=== PATIENT | female | born 2000 | race Caucasian/White ===

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

== ENCOUNTER 2021-03-12 00:38 | Emergency (ER) | payer BC, SELFPAY ==
[2021-03-12 00:39] VITALS: BP 149/90; PULSE 103; RESP 16; TEMP 36.7; O2SAT 100; BMI 30.6
--- NOTE | 2021-03-12 00:52 | HMH.EDGENADL ---
ED Disposition Clinical Impression: Tonsillitis Clinical Impression: (Ruled Out): Acute tonsillitis Disposition: Home, Self-Care Condition on Discharge: Fair Additional Instructions: Follow-up with your primary care physician in 3 days. If your symptoms worsen, you develop fever, begin having difficulty swallowing or breathing please return to the emergency department or follow-up with your primary care physician sooner. Take Motrin and ibuprofen for pain. Referrals: Lior Wills MD [Primary Care Provider] - - Critical Care Critical Care Time: No Attestation: On , the high probability of a clinically significant, sudden or life threatening deterioration of the following system(s) required my full and direct attention, intervention and personal management. The time I documented below is in addition to time spent performing reported procedures but includes the following listed in this critical care notation. Medical Decision Making - Medical Records Medical records reviewed: Yes: I reviewed the patient's medical records. - Russ Inquiry Pt receiving controlled substance: No Vital Signs: 03/12/21 00:39 Temperature 98.1 F Temperature Source Oral Pulse Rate [Right Radial] 103 H Respiratory Rate 16 Blood Pressure [Right Arm] 149/90 H Blood Pressure Mean [Right Arm] 109 02 Sat by Pulse Oximetry 100 Oxygen Delivery Method Room Air Orders (Tests/Meds): ED MEDICATIONS Discontinued Medications Generic Name Dose Route Start Last Admin Trade Name Freq PRN Reason Stop Dose Admin Dexamethasone 10 mg 03/12/21 00:46 03/12/21 00:51 Dexamethasone 1mg/1ml Intensol 10ml Udc (Er) PO 03/12/21 00:47 10 mg ONCE ONE Administration Medical Decision Narrative: Patient is an 19-year-old female presents emergency department with chief complaint of sore throat. Differential diagnosis includes strep pharyngitis, tonsillitis, URI, COVID-19 among others. Given this we will swab her for COVID-19. Physical exam as well as Centor criteria not significantly consistent with strep pharyngitis. Also patient for COVID-19 and treat symptomatically with Decadron to treat swelling. Given the 2 days of swelling and pain likely viral presentation, will not prescribe antibiotics at this time but will recommend close follow-up with primary care physician to reevaluate. General Adult HPI - General Chief complaint: Upper Respiratory Infection Stated complaint: Sore throat Time Seen by Provider: 03/12/21 00:45 Mode of Arrival: Ambulatory Source of Information: Patient Limitations: No Limitations Description of Symptoms (Recalled from ER Triage Doc. by RN): Pt reports sore throat for 2 days. She deneis fever, chills, N/V/D, cough, PARSON. Pt reports frequent bouts of strep in the past. - History of Present Illness HPI narrative: 20-year-old female presented to the emergency room with a chief complaint of sore throat. Patient states has been present for about 2 days and got significantly worse this evening. She states that she was supposed to get her tonsils taken out but has not yet done. This happened prior, and has improved significantly with steroids. She denies any difficulty with swallowing, shortness of air, fevers, chills, headache, nausea or vomiting. - Related Data Home Medications Medication Instructions Recorded Confirmed norgestimate 0.25 mg-ethinyl 1 tab PO DAILY #84 tab 11/05/18 11/11/20 estradiol 35 mcg tablet metformin 500 mg tablet,extended 1 tab PO DAILY 07/02/19 11/11/20 release 24 hr Cetirizine HCl 10 mg PO DAILY 11/11/20 11/11/20 Fluticasone Propionate 1 spray IH BID 11/11/20 11/11/20 Previous Rx's Medication Instructions Recorded Albuterol Sulfate [Albuterol HFA 1 - 2 puffs IH Q4-6H PRN #1 inh 07/14/18 Inhaler] cephALEXin [cephALEXin 500mg 500 mg PO TID #30 cap 11/12/20 capsule*] Allergies Allergy/AdvReac Type Severity Reaction Status Date / Time No Known A
[2021-03-12 01:10] VITALS: BP 139/87; PULSE 92; RESP 20; TEMP 36.7; O2SAT 99
[2021-03-12 01:24] LABS: Coronavirus 19, PCR Not Detected (NotDetected); Influenza A, PCR Not Detected (NotDetected); Influenza B, PCR Not Detected (NotDetected)
== END 2021-03-12 01:17 | disposition home or self-care (01) ==
PROVIDERS: Emergency Provider Emergency Medicine; PCP Family Medicine
DX: J03.90 Acute tonsillitis, unspecified (principal); Z20.822 Contact with and (suspected) exposure to COVID-19
CPT/HCPCS: 99281; C9803; U0003; U0005

== ENCOUNTER 2021-09-13 09:44 | Emergency (ER) | payer BC, SELFPAY ==
[2021-09-13 10:01] VITALS: BP 158/95; PULSE 73; RESP 18; TEMP 36.9; O2SAT 100; BMI 34.2
[2021-09-13 11:14] VITALS: BP 133/85; PULSE 79; RESP 18; TEMP 36.6; O2SAT 98; BMI 34.2
--- NOTE | 2021-09-13 11:18 | HMH.EDUTC ---
[facility] [place] Clinical Impression: Bronchitis Sinusitis Qualifiers: Sinusitis location: unspecified location Chronicity: acute Recurrence: non-recurrent Qualified Code(s): J01.90 - Acute sinusitis, unspecified Disposition: Home, Self-Care Condition on Discharge: Good Instructions: DI for Sinusitis, DI for Acute Bronchitis Additional Instructions: Drink plenty of fluids. Take tylenol or ibuprofen for pain or fever. Take the medications as directed. Follow up with your regular doctor. GO TO THE ER FOR ANY WORSENING SYMPTOMS Prescriptions: Brompheniramine/Pseudoephed/Dm [Bromfed Dm Cough Syrup] 5 ml PO Q6HP PRN #240 ml PRN Reason: Cough Transmission Status: Received by [id number] Amoxicillin/Potassium Clav [Amox-Clav 875-125 mg Tablet] 1 tab PO BID #20 tab Transmission Status: Received by [id number] methylPREDNISolone [Medrol] 4 mg PO DIRECTED 6 Days #21 packet Transmission Status: Received by [id number] Referrals: Lior Wills MD [Primary Care Provider] - Forms: Work/School Release Time of Disposition: 12:02 Medical Decision Making - Medical Records Medical records reviewed: No: I reviewed the patient's medical records. - Russ Inquiry Pt receiving controlled substance: No Vital Signs: 09/13/21 10:01 09/13/21 11:14 09/13/21 12:13 Temperature 98.4 F 97.8 F 97.8 F Temperature Source Oral Oral Oral Pulse Rate 74 Pulse Rate [Left Radial] 73 79 Respiratory Rate 18 18 16 Blood Pressure 128/80 Blood Pressure [Right Arm] 158/95 H 133/85 Blood Pressure Mean [Right Arm] 116 101 Blood Pressure Source [Right Arm] Automatic Cuff Blood Pressure Position [Right Arm] Sitting 02 Sat by Pulse Oximetry 100 98 Oxygen Delivery Method Room Air Room Air - Lab Data Lab Results 09/13/21 11:44: Influenza Type A Ag Negative, Influenza Type B Ag Negative 09/13/21 11:44: Strep Scn Rapid Clinic Negative Orders (Tests/Meds): ORDERS Category Date Time Status Strep Screen Confirmation Stat Micro 09/13/21 11:44 [place] [facility] [place] - General Stated complaint: loss voice, sore throat, congestion, cough Time Seen by Provider: 03/21/22 11:18 Mode of Arrival: Ambulatory Source of Information: Patient Limitations: No Limitations Description of Symptoms (Recalled from Triage Doc. by RN): [facility] and congestion x3 days HEENT Symptoms (Recalled from RN notes): No Resp Symptoms (Recalled from RN notes): Yes Skin Symptoms (Recalled from RN notes): No MS Symptoms (Recalled from RN notes): No Functional Status (Recalled from RN notes): na - History of Present Illness Provider Complaint: She states that for the past 2 days she has had sinus congestion, productive cough with yellowish sputum and sore thraot. She has had a negative covid test yesterday. - Related Data Home Medications Medication Instructions Recorded Confirmed norgestimate 0.25 mg-ethinyl 1 tab PO DAILY #84 tab 11/05/18 11/11/20 estradiol 35 mcg tablet metformin 500 mg tablet,extended 1 tab PO DAILY 07/02/19 11/11/20 release 24 hr Cetirizine HCl 10 mg PO DAILY 11/11/20 11/11/20 Fluticasone Propionate 1 spray IH BID 11/11/20 11/11/20 Previous Rx's Medication Instructions Recorded Albuterol Sulfate [Albuterol HFA 1 - 2 puffs IH Q4-6H PRN #1 inh 07/14/18 Inhaler] cephALEXin [cephALEXin 500mg 500 mg PO TID #30 cap 11/12/20 capsule*] Amoxicillin/Potassium Clav 1 tab PO BID #20 tab 09/13/21 [Amox-Clav 875-125 mg Tablet] Brompheniramine/Pseudoephed/Dm 5 ml PO Q6HP PRN #240 ml 09/13/21 [Bromfed Dm Cough Syrup] methylPREDNISolone [Medrol] 4 mg PO DIRECTED 6 Days #21 09/13/21 packet Allergies Allergy/AdvReac Type Severity Reaction Status Date / Time No Known Allergies Allergy Verified 07/02/19 11:25 - Worker's Comp Is this a Worker's Comp case?: No [facility] History - Hepatitis A Screen Drug use history?: No High r
[2021-09-13 11:52] LABS: UTC Strep Screen (Rapid) Negative (Negative)
[2021-09-13 11:53] LABS: UTC Influenza A Antigen Negative (Negative); UTC Influenza B Antigen Negative (Negative)
[2021-09-13 12:13] VITALS: BP 128/80; PULSE 74; RESP 16; TEMP 36.6; O2SAT 99
== END 2021-09-13 12:14 | disposition home or self-care (01) ==
PROVIDERS: Emergency Provider Nurse Practitioner Family; PCP Family Medicine
DX: J20.9 Acute bronchitis, unspecified (principal); J01.90 Acute sinusitis, unspecified
CPT/HCPCS: 87804; 87880; 99213; G0463

== ENCOUNTER 2022-05-23 08:04 | Emergency (ER) | payer BC, SELFPAY ==
--- NOTE | 2022-05-23 08:26 | EXP.UTC ---
Discharge Plan Disposition Patient Disposition: Home, Self-Care Condition: Good Prescriptions Prescriptions: New oseltamivir [Tamiflu] 75 mg capsule 75 mg PO BID Qty: 10 0RF methylprednisolone 4 mg Tablets,Dose Pack 4 mg PO DIRECTED Qty: 21 0RF obfqdlrtjskvntz-eesxhlsgs-EH [Bromfed DM] 2-30-10 mg/5 mL Syrup 5 ml PO Q6H PRN (Reason: Cough) Qty: 240 0RF No Action norgestimate-ethinyl estradiol 0.25-35 mg-mcg tablet 1 tab PO DAILY Qty: 84 metformin 500 mg tablet extended release 24 hr 1 tab PO DAILY Label Comments: TAKE 1 TABLET BY MOUTH TWICE DAILY WITH FOOD albuterol sulfate 18 GM HFA aerosol inhaler 1 - 2 puffs IH Q4-6H PRN (Reason: Shortness Of Breath Or Wheezing) Qty: 1 0RF methylprednisolone 4 MG tablets,dose pack 4 mg PO DIRECTED 6 Days Qty: 21 0RF slgzrhrconwrjkw-lwbgyntqe-QO 118 ML syrup 5 ml PO Q6HP PRN (Reason: Cough) Qty: 240 0RF amoxicillin-pot clavulanate 1 EACH tablet 1 tab PO BID Qty: 20 0RF cetirizine 10 MG tablet 10 mg PO DAILY fluticasone propionate 16 GM spray,suspension 1 spray IH BID Label Comments: USE 1 SPRAY(S) IN EACH NOSTRIL ONCE DAILY cephalexin 500 MG capsule 500 mg PO TID Qty: 30 0RF Referrals Follow up/Referrals: Lior Wills MD [Primary Care Provider] - See instructions Activity Restrictions/Add. Instructions Additional Instructions/Restrictions: Drink plenty of fluids. Take tylenol or ibuprofen for pain or fever. Take the medications as directed. Follow up with your regular doctor. GO TO THE ER FOR ANY WORSENING SYMPTOMS Throw your tooth brush away and get a new one. Quarantine until you know the results of your covid-19 test. Notify your school or workplace of your results and follow their instructions regarding return to work/school. Don't start the oral steroids until tomorrow, since you had the shot here today. The cough medication (promethazine dm) will make you drowsy, so don't drive or operate heavy machinery after taking it. The pyridium will make your urine turn orange, this is an expected side effect. It will stain your clothes if it comes into contact with them. We will culture the urine. That will tell what bacteria is causing your infection and which antibiotics will treat it best. Sometimes the first antibiotic we prescribe turns out to not work against different bacteria. So, make sure you follow up within 3 days if you are not getting better. Clinical Impressions Clinical Impression: Pharyngitis, Acute viral syndrome, Influenza Instructions Patient Instructions: Oseltamivir, DI for Influenza -- Adult Discharge ED Provider: Raymundo Rodas [facility] General Stated complaint: possible flu/sister postive Time Seen by Provider: 05/23/22 08:26 History of Present Illness Provider Complaint: She states that for the past 2 days she has had fever, chills, body aches, and a sore throat. Related Data Home Medications Medication Instructions Recorded Confirmed norgestimate 0.25 mg-ethinyl 1 tab PO DAILY BC #84 tabs 11/05/18 11/11/20 estradiol 35 mcg tablet metformin 500 mg tablet,extended 1 tab PO DAILY PCOS 07/02/19 11/11/20 release 24 hr cetirizine 10 mg tablet 10 mg PO DAILY ALLERGIES 11/11/20 11/11/20 fluticasone propionate 50 1 spray IH BID ALLERGIES 11/11/20 11/11/20 mcg/actuation nasal spray,suspension Previous Rx's Medication Instructions Recorded albuterol sulfate 90 mcg/actuation 1 - 2 puffs IH Q4-6H PRN Shortness 07/14/18 aerosol inhaler Of Breath Or Wheezing #1 inh cephalexin 500 mg capsule 500 mg PO TID #30 caps 11/12/20 amoxicillin 875 mg-potassium 1 tab PO BID #20 tabs 09/13/21 clavulanate 125 mg tablet ofiwhshysjxnvdz-cqzzybhpspyvjec-ZR 5 ml PO Q6HP PRN Cough #240 mL 09/13/21 2 mg-30 mg-10 mg/5 mL oral syrup methylprednisolone 4 mg tablets in 4 mg PO DIRECTED 6 days #21 09/13/21 a dose pack packets br
[2022-05-23 08:36] LABS: UTC Influenza A Antigen Negative (Negative); UTC Influenza B Antigen Negative (Negative); UTC Strep Screen (Rapid) Negative (Negative)
[2022-05-23 08:46] VITALS: BP 178/104; PULSE 102; RESP 15; TEMP 37.3; O2SAT 99; BMI 36.6
[2022-05-23 08:53] VITALS: BP 178/104; PULSE 120; RESP 15; TEMP 37.3
== END 2022-05-23 09:02 | disposition home or self-care (01) ==
PROVIDERS: Emergency Provider Nurse Practitioner Family; PCP Family Medicine
DX: J11.1 Influenza due to unidentified influenza virus with other respiratory manifestations (principal); B34.9 Viral infection, unspecified
CPT/HCPCS: 87804; 87880; 99212; G0463

== ENCOUNTER 2022-05-28 08:00 | Emergency (ER) | payer BC, SELFPAY ==
--- NOTE | 2022-05-28 08:13 | EXP.UTC ---
Discharge Plan Disposition Patient Disposition: Home, Self-Care Condition: Good Prescriptions Prescriptions: New azithromycin [Zithromax] 250 mg tablet 250 mg PO UD DOSE PK Qty: 6 0RF Rx Instructions: Take two (2) tablets today, then one (1) tablet days #2 thru #5 methylprednisolone 4 mg Tablets,Dose Pack 4 mg PO DIRECTED Qty: 21 0RF guaifenesin [Mucinex] 600 mg tablet extended release 12hr 600 - 1,200 mg PO BIDP PRN (Reason: Congestion) Qty: 30 0RF No Action norgestimate-ethinyl estradiol 0.25-35 mg-mcg tablet 1 tab PO DAILY Qty: 84 metformin 500 mg tablet extended release 24 hr 1 tab PO DAILY Label Comments: TAKE 1 TABLET BY MOUTH TWICE DAILY WITH FOOD albuterol sulfate 18 GM HFA aerosol inhaler 1 - 2 puffs IH Q4-6H PRN (Reason: Shortness Of Breath Or Wheezing) Qty: 1 0RF methylprednisolone 4 MG tablets,dose pack 4 mg PO DIRECTED 6 Days Qty: 21 0RF jtcsrwltnccvlmm-behuplscg-YE 118 ML syrup 5 ml PO Q6HP PRN (Reason: Cough) Qty: 240 0RF amoxicillin-pot clavulanate 1 EACH tablet 1 tab PO BID Qty: 20 0RF oseltamivir [Tamiflu] 75 mg capsule 75 mg PO BID Qty: 10 0RF methylprednisolone 4 mg Tablets,Dose Pack 4 mg PO DIRECTED Qty: 21 0RF ahylyogwrlwqgqy-hxbmvocym-BX [Bromfed DM] 2-30-10 mg/5 mL Syrup 5 ml PO Q6H PRN (Reason: Cough) Qty: 240 0RF cetirizine 10 MG tablet 10 mg PO DAILY fluticasone propionate 16 GM spray,suspension 1 spray IH BID Label Comments: USE 1 SPRAY(S) IN EACH NOSTRIL ONCE DAILY cephalexin 500 MG capsule 500 mg PO TID Qty: 30 0RF Referrals Follow up/Referrals: Lior Wills MD [Primary Care Provider] - See instructions Activity Restrictions/Add. Instructions Additional Instructions/Restrictions: Drink plenty of fluids. Take tylenol or ibuprofen for pain or fever. Take the medications as directed. Follow up with your regular doctor. GO TO THE ER FOR ANY WORSENING SYMPTOMS Don't start the oral steroids until tomorrow, since you had the shot here today. Clinical Impressions Clinical Impression: Bronchitis Instructions Patient Instructions: DI for Acute Bronchitis Discharge ED Provider: Raymundo Rodas [facility] General Stated complaint: SOA, Congestion Time Seen by Provider: 05/28/22 08:13 History of Present Illness Provider Complaint: She states that for the past 5 days she has had chest congestion and productive cough with greenish sputum. Related Data Home Medications Medication Instructions Recorded Confirmed norgestimate 0.25 mg-ethinyl 1 tab PO DAILY BC #84 tabs 11/05/18 11/11/20 estradiol 35 mcg tablet metformin 500 mg tablet,extended 1 tab PO DAILY PCOS 07/02/19 11/11/20 release 24 hr cetirizine 10 mg tablet 10 mg PO DAILY ALLERGIES 11/11/20 11/11/20 fluticasone propionate 50 1 spray IH BID ALLERGIES 11/11/20 11/11/20 mcg/actuation nasal spray,suspension Previous Rx's Medication Instructions Recorded albuterol sulfate 90 mcg/actuation 1 - 2 puffs IH Q4-6H PRN Shortness 07/14/18 aerosol inhaler Of Breath Or Wheezing #1 inh cephalexin 500 mg capsule 500 mg PO TID #30 caps 11/12/20 amoxicillin 875 mg-potassium 1 tab PO BID #20 tabs 09/13/21 clavulanate 125 mg tablet plesysicjwezbyw-ifcclddjzgkavek-FW 5 ml PO Q6HP PRN Cough #240 mL 09/13/21 2 mg-30 mg-10 mg/5 mL oral syrup methylprednisolone 4 mg tablets in 4 mg PO DIRECTED 6 days #21 09/13/21 a dose pack packets chmvaqknlihyghn-jfuszfjslrbgdry-RI 5 ml PO Q6H PRN Cough #240 mL 05/23/22 2 mg-30 mg-10 mg/5 mL oral syrup (Bromfed DM) methylprednisolone 4 mg tablets in 4 mg PO DIRECTED #21 tabs 05/23/22 a dose pack oseltamivir 75 mg capsule (Tamiflu) 75 mg PO BID #10 caps 05/23/22 azithromycin 250 mg tablet 250 mg PO UD DOSE PK #6 tabs 05/28/22 (Zithromax) guaifenesin 600 mg tablet, 600 - 1,200 mg PO BIDP PRN 05/28/22 extended release 12 hr (Mucinex) Congestion #30
--- NOTE | 2022-05-28 08:14 | XR_ITS ---
PROCEDURE INFORMATION: Exam: XR Chest Exam date and time: 05/28/2022 8:15 AM Age: 22 years old Clinical indication: Cough TECHNIQUE: Imaging protocol: Radiologic exam of the chest. Views: 2 views. COMPARISON: No relevant prior studies available. FINDINGS: Lungs: Small, irregular opacity in the retrocardiac left lower lobe, concerning for pneumonia. Pleural spaces: Unremarkable. No pleural effusion. No pneumothorax. Heart/Mediastinum: Unremarkable. No cardiomegaly. Bones/joints: Unremarkable. IMPRESSION: Small, irregular opacity in the retrocardiac left lower lobe, concerning for pneumonia. No pleural effusion.
[2022-05-28 08:16] VITALS: BP 137/92; PULSE 105; RESP 16; TEMP 36.8; O2SAT 98; BMI 36.6
[2022-05-28 08:33] LABS: UTC Pregnancy Test, Urine Negative (Negative)
[2022-05-28 09:10] VITALS: BP 137/92; PULSE 105; RESP 16; TEMP 36.8
== END 2022-05-28 09:11 | disposition home or self-care (01) ==
PROVIDERS: Emergency Provider Nurse Practitioner Family; PCP Family Medicine
DX: R06.02 Shortness of breath (principal); R05.9 Cough, unspecified; R09.81 Nasal congestion; Z79.51 Long term (current) use of inhaled steroids; Z79.52 Long term (current) use of systemic steroids; Z79.84 Long term (current) use of oral hypoglycemic drugs; Z79.899 Other long term (current) drug therapy
CPT/HCPCS: 71046; 81025; 96372; 99213; G0463

== ENCOUNTER 2023-01-07 03:49 | Emergency (ER) | payer BC, SELFPAY ==
[2023-01-07 04:00] VITALS: BP 160/99; PULSE 119; RESP 20; TEMP 36.8; O2SAT 99; BMI 38.6
--- NOTE | 2023-01-07 04:00 | HMH.EDABDPAI ---
Discharge Plan Disposition Patient Disposition: Home, Self-Care Condition: Good Prescriptions Prescriptions: New ondansetron 4 mg tablet,disintegrating 4 mg PO Q6H PRN (Reason: nausea and vomiting) Qty: 10 0RF dicyclomine 20 mg tablet 20 mg PO QID PRN (Reason: abdominal pain) Qty: 20 0RF No Action norgestimate-ethinyl estradiol 0.25-35 mg-mcg tablet 1 tab PO DAILY Qty: 84 metformin 500 mg tablet extended release 24 hr 1 tab PO DAILY Patient Comments: TAKE 1 TABLET BY MOUTH TWICE DAILY WITH FOOD albuterol sulfate 18 GM HFA aerosol inhaler 1 - 2 puffs IH Q4-6H PRN (Reason: Shortness Of Breath Or Wheezing) Qty: 1 0RF methylprednisolone 4 MG tablets,dose pack 4 mg PO DIRECTED 6 Days Qty: 21 0RF zfirevztxdsofsc-okkjlqcjr-DF 118 ML syrup 5 ml PO Q6HP PRN (Reason: Cough) Qty: 240 0RF amoxicillin-pot clavulanate 1 EACH tablet 1 tab PO BID Qty: 20 0RF oseltamivir [Tamiflu] 75 mg capsule 75 mg PO BID Qty: 10 0RF methylprednisolone 4 mg Tablets,Dose Pack 4 mg PO DIRECTED Qty: 21 0RF hdlriwmtgvqbwux-npcupmzjb-PZ [Bromfed DM] 2-30-10 mg/5 mL Syrup 5 ml PO Q6H PRN (Reason: Cough) Qty: 240 0RF cetirizine 10 MG tablet 10 mg PO DAILY fluticasone propionate 16 GM spray,suspension 1 spray IH BID Patient Comments: USE 1 SPRAY(S) IN EACH NOSTRIL ONCE DAILY cephalexin 500 MG capsule 500 mg PO TID Qty: 30 0RF azithromycin [Zithromax] 250 mg tablet 250 mg PO UD DOSE PK Qty: 6 0RF Rx Instructions: Take two (2) tablets today, then one (1) tablet days #2 thru #5 methylprednisolone 4 mg Tablets,Dose Pack 4 mg PO DIRECTED Qty: 21 0RF guaifenesin [Mucinex] 600 mg tablet extended release 12hr 600 - 1,200 mg PO BIDP PRN (Reason: Congestion) Qty: 30 0RF Referrals Follow up/Referrals: Lior Wills MD [Primary Care Provider] - See instructions Activity Restrictions/Add. Instructions Additional Instructions/Restrictions: Have a bland diet. Push fluids. I am writing for some Zofran and some Bentyl for abdominal groinf Clinical Impressions Clinical Impression: Gastroenteritis, Mesenteric adenitis Instructions Patient Instructions: DI for Acute Abdominal Pain Discharge ED Provider: Terri Steven Abdominal Pain HPI General Chief Complaint: Abdominal Pain Stated Complaint: Vomiting and blood in urine Time Seen by Provider: 01/07/23 03:54 Mode of Arrival: Ambulatory Source of Information: Patient Limitations: No Limitations History of Present Illness HPI narrative: Patient is a 22-year-old female who is here secondary to severe abdominal pain and intractable nausea vomiting diarrhea. Patient stated that she drank this evening. She says she does not drink a lot maybe have gotten drunk twice and her whole lifetime. Patient however ate a [employer] hamburger and had severe epigastric pain and nausea and vomiting. Patient has had diffuse diarrhea as well no blood in the diarrhea. Patient stated that she read stretch moderate irritated her throat and she has slight pink vomit the last vomit. She has a gallbladder she has her appendix no history of kidney stones. She is concerned she is having food poisoning. No urinary symptoms. She is not making much urine she feels like she is dehydrated since this has been going on since midnight. Pain was 10 out of 10 earlier is down to a 5. Sharp cramping type pain intermittent MD complaint: abdominal pain Onset (ago): hour(s) Consistency: intermittent Location: epigastric Severity: severe Severity scale (1-10): >10 Quality: cramping and stabbing Radiation: RUQ Migration to: RUQ Relieving factors: nothing Exacerbating factors: nothing Associated symptoms: nausea, vomiting, diarrhea and chills Related Data Home Medications Medication Instructions Recorded Confirmed norgestimate 0.25 mg-ethinyl 1 tab PO DAILY #84 tabs 11/05/18 11/11/20 estradiol 35 mcg t
[2023-01-07 04:04] LABS: Microscopic, Urine URINE MICROSCOPIC (MICROSCOPIC)
[2023-01-07 04:06] LABS: Appearance,Urine CLEAR (Clear); Bilirubin,Urine Negative (Negative); Blood, Urine Negative (Negative); Color,Urine YELLOW (Yellow); Glucose,Urine (UA) Negative (Negative); Ketones,Urine Negative (Negative); Leukocyte Esterase,Urine Negative (Negative); Nitrate,Urine Negative (Negative); PH,Urine 8.5 (5.0-8.5); Protein,Urine TRACE (Negative); Specific Gravity, Urine 1.015 (1.005-1.030); Urobilinogen,Urine 0.2 EU/dl (0.2)
[2023-01-07 04:16] LABS: Basophils % 0.4 % (0.1-2.0); Eosinophils # 0.2 K/mm3 (0.0-0.4); Eosinophils % 1.8 % (0.1-12.0); Hematocrit 42.6 % (37.0-47.0); Hemoglobin 13.7 g/dL (12.2-16.2); Lymphocytes # 2.3 K/mm3 (0.7-4.5); Lymphocytes % 22.5 % (10-50); Mean Corpuscular HGB Conc 32.1 g/dL (31.8-35.4); Mean Corpuscular Hemoglobin 27.1 pg (27.0-31.2); Mean Corpuscular Volume 84.3 fl (81-99); Mean Platelet Volume 7.7 fl (7.4-10.4); Monocytes # 0.5 K/mm3 (0.1-1.0); Monocytes % 4.7 % (1.7-9.3); Neutrophils # 7.3 K/mm3 (1.8-7.8); Neutrophils % 70.6 % (37.0-80.0); Platelet Count 339 K/mm3 (142-424); Red Blood Count 5.06 M/mm3 (4.20-5.40); Red Cell Distribution Width 13.2 % (11.5-17.5); White Blood Count 10.4 K/mm3 (4.8-10.8)
[2023-01-07 04:19] LABS: Lactic Acid 1.7 mmol/L (0.7-2.1)
[2023-01-07 04:20] LABS: Bacteria,Urine 1+ /lpf; RBC,Urine Occasional #/hpf (0-3)
[2023-01-07 04:20] LABS: Alanine Aminotransferase 33 U/L (12-78); Albumin Level 4.3 g/dl (3.5-5.0); Albumin/Globulin Ratio 1.1 (1.1-1.8); Alkaline Phosphatase 68 U/L (38-126); Anion Gap 12.8 mEq/L (5-15); Aspartate Amino Transferase 35 U/L (14-36); Bilirubin,Total 0.3 mg/dl (0.2-1.3); Blood Urea Nitrogen 12 mg/dl (7-17); Calcium 8.9 mg/dl (8.4-10.2); Carbon Dioxide 25 mmol/L (22.0-30.0); Chloride 107 mmol/L (98-107); Creatinine Clearance Estimated 205 mL/min (50-200); Estimated Glomerular Filt Rate 106 ml/min (>60); GFR (African American) 128 ML/MIN (>60); Globulin 3.8 g/dL (1.3-3.2); Glucose 107 mg/dl (74-100); Lipase 101 U/L (23-300); Potassium 3.8 mmoL/L (3.5-5.1); Sodium 141 mmol/L (136-145); Total Protein,Serum 8.1 g/dl (6.3-8.2)
[2023-01-07 04:22] LABS: Activated Partial Thrombo Time 28.9 seconds (22.8-30.6); INR 0.93 (0.9-1.1); Prothrombin Time 10.1 seconds (10.1-12.5)
[2023-01-07 04:26] LABS: Urine Pregnancy, HCG Qual. Negative (Negative)
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
[2023-01-07 04:46] LABS: Procalcitonin < 0.030 ng/mL (0.0-2.0)
[2023-01-07 06:13] VITALS: BP 124/66; PULSE 75; RESP 16; TEMP 36.8; O2SAT 98
== END 2023-01-07 06:15 | disposition home or self-care (01) ==
PROVIDERS: Emergency Provider Emergency Medicine; PCP Family Medicine
DX: K52.9 Noninfective gastroenteritis and colitis, unspecified (principal); I88.0 Nonspecific mesenteric lymphadenitis; R10.13 Epigastric pain; E28.2 Polycystic ovarian syndrome
CPT/HCPCS: 74177; 80053; 81001; 81025; 83605; 83690; 84145; 85025; 85610; 85730; 96374; 96375; 99285; J2405; Q9967

== ENCOUNTER 2023-03-14 22:36 | Emergency (ER) | payer OTHER, BC, SELFPAY ==
[2023-03-14 22:37] VITALS: BP 140/88; PULSE 106; RESP 18; TEMP 37.2; O2SAT 98
[2023-03-14 22:41] VITALS: BP 140/88; PULSE 109; RESP 20; O2SAT 97
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
[2023-03-14 22:57] VITALS: BP 164/119; PULSE 114; RESP 19; O2SAT 99; BMI 38.4
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
[2023-03-14 22:58] LABS: POC Glucose,Bedside 150 (70-110)
[2023-03-14 22:59] VITALS: BMI 38.6
[2023-03-14 23:09] LABS: Basophils # 0.1 K/mm3 (0-0.2); Basophils % 0.9 % (0.1-2.0); Eosinophils # 0.2 K/mm3 (0.0-0.4); Eosinophils % 2.2 % (0.1-12.0); Hematocrit 44.4 % (37.0-47.0); Hemoglobin 14.4 g/dL (12.2-16.2); Lymphocytes # 2.8 K/mm3 (0.7-4.5); Lymphocytes % 25.5 % (10-50); Mean Corpuscular HGB Conc 32.4 g/dL (31.8-35.4); Mean Corpuscular Hemoglobin 27.6 pg (27.0-31.2); Mean Corpuscular Volume 85.3 fl (81-99); Mean Platelet Volume 7.6 fl (7.4-10.4); Monocytes # 0.5 K/mm3 (0.1-1.0); Monocytes % 4.9 % (1.7-9.3); Neutrophils # 7.3 K/mm3 (1.8-7.8); Neutrophils % 66.5 % (37.0-80.0); Platelet Count 296 K/mm3 (142-424); Red Blood Count 5.21 M/mm3 (4.20-5.40); Red Cell Distribution Width 13.5 % (11.5-17.5); White Blood Count 10.9 K/mm3 (4.8-10.8)
[2023-03-14 23:10] LABS: Chloride 106 mmol/L (98-107); Sodium 142 mmol/L (136-145)
[2023-03-14 23:11] LABS: Potassium 3.7 mmoL/L (3.5-5.1)
[2023-03-14 23:13] LABS: Alanine Aminotransferase 47 U/L (12-78); Alkaline Phosphatase 61 U/L (38-126); Anion Gap 14.7 mEq/L (5-15); Aspartate Amino Transferase 44 U/L (14-36); Bilirubin,Total 0.2 mg/dl (0.2-1.3); Blood Urea Nitrogen 12 mg/dl (7-17); Carbon Dioxide 25 mmol/L (22.0-30.0); Creatinine Clearance Estimated 179 mL/min (50-200); Estimated Glomerular Filt Rate 91 ml/min (>60); GFR (African American) 110 ML/MIN (>60)
[2023-03-14 23:14] LABS: Albumin Level 4.1 g/dl (3.5-5.0); Albumin/Globulin Ratio 1.1 (1.1-1.8); Calcium 8.8 mg/dl (8.4-10.2); Globulin 3.8 g/dL (1.3-3.2); Glucose 142 mg/dl (74-100); Total Protein,Serum 7.9 g/dl (6.3-8.2)
[2023-03-14 23:28] LABS: Troponin I < 0.01 ng/ml (0.00-0.034)
--- NOTE | 2023-03-14 23:29 | PC.NURSE ---
pt to CT
[2023-03-14 23:33] LABS: HCG,Quantitative < 2 mIU/ml (0-5.42)
--- NOTE | 2023-03-14 23:58 | PC.NURSE ---
pt back from CT
[2023-03-15 00:01] VITALS: BP 127/80; PULSE 105; RESP 18; O2SAT 98
[2023-03-15 00:50] VITALS: BP 140/84; PULSE 84; RESP 19; TEMP 36.9; O2SAT 99
== END 2023-03-15 00:50 | disposition home or self-care (01) ==
PROVIDERS: Emergency Medicine; Emergency Provider Emergency Medicine; PCP Family Medicine
DX: R51.9 Headache, unspecified (principal); R07.89 Other chest pain; R00.0 Tachycardia, unspecified; R11.0 Nausea; V49.40XA Driver injured in collision with unspecified motor vehicles in traffic accident, initial encounter; E28.2 Polycystic ovarian syndrome
CPT/HCPCS: 70450; 70496; 70498; 71045; 71275; 72125; 72128; 72131; 72170; 74174; 80053; 82962; 84484; 84702; 85025; 96361; 96374; 96375; 99285; J0131; Q9967

== ENCOUNTER 2023-05-17 08:34 | Emergency (ER) | payer BC, SELFPAY ==
[2023-05-17 08:35] VITALS: BP 148/94; PULSE 93; RESP 18; TEMP 37.4; O2SAT 96; BMI 41.1
--- NOTE | 2023-05-17 08:50 | EXP.UTC ---
Discharge Plan Disposition Patient Disposition: Home, Self-Care Condition: Good Prescriptions Prescriptions: New amoxicillin [amoxicillin] 500 mg tablet 500 mg PO TID 10 Days Qty: 30 0RF wbqdckqurbgvomd-zdhzxaczy-CW [Bromfed DM] 2-30-10 mg/5 mL Syrup 5 ml PO Q6H PRN (Reason: Cough) Qty: 240 0RF No Action norgestimate-ethinyl estradiol [Sprintec (28)] 0.25-35 mg-mcg tablet 1 tab PO DAILY metformin 500 mg tablet extended release 24 hr 500 mg PO BIDWMEAL Patient Comments: TAKE 1 TABLET BY MOUTH TWICE DAILY WITH MEALS. DO NOT CRUSH, CHEW, OR SPLIT. glycopyrrolate 2 mg tablet 2 mg PO BIDP PRN (Reason: Sweating) Patient Comments: TAKE 1 TABLET BY MOUTH TWICE DAILY NEEDED FOR SWEATING Referrals Follow up/Referrals: Lior Wills MD [Primary Care Provider] - See instructions Activity Restrictions/Add. Instructions Additional Instructions/Restrictions: Drink plenty of fluids. Take tylenol or ibuprofen for pain or fever. Take the medications as directed. Follow up with your regular doctor. GO TO THE ER FOR ANY WORSENING SYMPTOMS Clinical Impressions Clinical Impression: Bronchitis, Acute viral syndrome Stand Alone Forms Stand Alone Forms: Work/School Release Instructions Patient Instructions: DI for Viral Syndrome Discharge ED Provider: Raymundo Rodas [facility] General Stated complaint: FEVER, CHILLS Mode of Arrival: Ambulatory Source of Information: Patient Limitations: No Limitations Time Seen by Provider: 05/17/23 08:49 Description of Symptoms (Recalled from Triage Doc. by RN): c/o cold sweats, body aches, little fever and congestion that started today. HEENT Symptoms (Recalled from RN notes): Yes Resp Symptoms (Recalled from RN notes): Yes Skin Symptoms (Recalled from RN notes): No MS Symptoms (Recalled from RN notes): No Functional Status (Recalled from RN notes): wnl History of Present Illness Provider Complaint: She states that for the past 2 days she has had sore throat, chills, and malaise. She has had a cough for the past 2 weeks. Related Data Home Medications Medication Instructions Recorded Confirmed glycopyrrolate 2 mg tablet 2 mg PO BIDP PRN Sweating 03/14/23 03/14/23 metformin 500 mg tablet,extended 500 mg PO BIDWMEAL Weight Loss 03/14/23 03/14/23 release 24 hr norgestimate 0.25 mg-ethinyl 1 tab PO DAILY Contraception 03/14/23 03/14/23 estradiol 35 mcg tablet (Sprintec (28)) Previous Rx's Medication Instructions Recorded amoxicillin 500 mg tablet 500 mg PO TID 10 days #30 tabs 05/17/23 uxvjivifdypjeje-uowwvjcunaimbcl-TC 5 ml PO Q6H PRN Cough #240 mL 05/17/23 2 mg-30 mg-10 mg/5 mL oral syrup (Bromfed DM) Allergies Allergy/AdvReac Type Severity Reaction Status Date / Time No Known Allergies Allergy Verified 01/07/23 04:10 Worker's Comp Is this a Worker's Comp case?: No [facility] Disclaimer: The information contained in this section may have been updated after the patient was seen, as this information can be updated by other users. Medical History (Updated 05/17/23 @ 09:17 by Raymundo Rodas APRN) Generalized hyperhidrosis PCOS (polycystic ovarian syndrome) Social History Smoking Status: Never smoker alcohol intake: never substance use type: denies use current occupational status: student Travel in the last 8 weeks: None household members: family housing: house ROS Obtained: Yes All systems reviewed & no additional complaints except as documented Constitutional Constitutional: Reports chills and Denies fever(s) Eyes Eyes: Denies eye discharge ENT Ears, Nose, Mouth, and Throat: Reports as per HPI Cardiovascular Cardiovascular: Denies chest pain Respiratory Respiratory: Denies chest congestion and Reports cough Gastrointestinal Gastrointestingal: Reports nausea; Denies abdominal pain, constipation, cramping, diarrhea or vom
[2023-05-17 08:59] LABS: UTC Strep Screen (Rapid) Negative (Negative)
[2023-05-17 09:00] LABS: UTC Influenza A Antigen Negative (Negative); UTC Influenza B Antigen Negative (Negative)
[2023-05-17 09:26] VITALS: BP 148/94; PULSE 93; RESP 18; TEMP 37.4; O2SAT 96
== END 2023-05-17 09:28 | disposition home or self-care (01) ==
PROVIDERS: Emergency Provider Nurse Practitioner Family; PCP Family Medicine
DX: J20.9 Acute bronchitis, unspecified (principal); R50.9 Fever, unspecified; R07.0 Pain in throat; R09.81 Nasal congestion; R53.81 Other malaise; B34.9 Viral infection, unspecified
CPT/HCPCS: 87635; 87804; 87880; 99212; 99214; G0463